=== PATIENT | female | born 1975 | race Caucasian/White ===

== ENCOUNTER → 2017-01-18 | Outpatient (CLI) | payer BC | END | disposition home or self-care (01) | LOC: C.LABSPEC 15:33 | PROVIDERS: ATTEND Physician Assistant | DX: N89.8 Other specified noninflammatory disorders of vagina (principal) ==

== ENCOUNTER → 2017-01-18 | Outpatient (CLI) | payer BC | END | disposition home or self-care (01) | LOC: C.PAPS 15:44 | PROVIDERS: ATTEND Physician Assistant | DX: Z01.419 Encounter for gynecological examination (general) (routine) without abnormal findings (principal); Z97.5 Presence of (intrauterine) contraceptive device ==

== ENCOUNTER → 2017-06-20 | Outpatient (CLI) | payer BC ==
[~2017-06-20] MED LIST: OPTIRAY 320 IV PRN
--- NOTE | 2017-06-20 13:49 | DIAGNOSTIC IMAGING REPORT ---
ANGIOGRAPHY HEAD COMBO CLINICAL HISTORY: History of intracranial aneurysm. COMPARISON STUDY: None available at time of interpretation. TECHNIQUE: Unenhanced and arterial phase imaging of the head was performed. Intravenous injection of 94 cc of Optiray 320 IV was uneventful. Sagittal and coronal reconstructions were viewed as well as maximal intensity projections on an independent 3-D workstation. FINDINGS: No acute intracranial hemorrhage, midline shift or mass effect is present. Ventricular system is normal. The basilar cisterns are patent. There are no extra-axial collections. Bailey-white differentiation is maintained. There are no findings to suggest acute dural sinus thrombosis or acute territorial infarct. Visualized portions of the sinuses and mastoid air cells are clear. Note is made of a left frontotemporal craniotomy. There is minimal encephalomalacia within the anterior left temporal lobe. Note is made of intracranial aneurysm clips adjacent to the left MCA trifurcation. No residual aneurysm sac filling is identified. No intracranial aneurysm is identified on this examination. The bilateral M1, M2, A1 and A2 segments are patent. The posterior circulation is intact. There is an anterior communicating artery and bilateral posterior communicating arteries. IMPRESSION: 1. No acute intracranial findings. 2. Status post left MCA trifurcation aneurysm clipping. No residual aneurysm sac filling. No additional intracranial aneurysms. Expected post operative findings. Electronically signed by: Robert Duckworth M.D. 06/20/2017 1:48 PM Dictated Date/Time: 06/20/2017 1:39 PM
== END | disposition home or self-care (01) ==
LOC: C.CTS 13:07
PROVIDERS: ATTEND Psychiatry & Neurology Neurology
DX: Z86.79 Personal history of other diseases of the circulatory system (principal); Z98.890 Other specified postprocedural states